=== PATIENT | female | born 1990 | race Caucasian/White ===

== ENCOUNTER 2020-05-09 10:03 | Outpatient (CLI) | payer BC | END 2020-05-09 10:04 | disposition home or self-care (01) | LOC: CTENTCT 10:03 | PROVIDERS: ATTEND Otolaryngology Plastic Surgery within the Head & Neck | DX: J32.9 Chronic sinusitis, unspecified (principal) | CPT/HCPCS: 70486 ==

== ENCOUNTER 2025-04-02 22:09 | Emergency (ER) | payer BC ==
[2025-04-02] MEDS ORDERED: Proparacaine 0.5% Opth 15 ML BOT ONE (23:32)
[2025-04-02] MEDS ORDERED: Fluorescein Opthalmic Strip ONE (23:32)
[2025-04-02] MEDS ORDERED: Gabapentin 100 MG CAP ONE (23:51)
== END 2025-04-02 23:57 | disposition home or self-care (01) ==
LOC: ERS 22:09
DX: B02.29 Other postherpetic nervous system involvement (principal)
CPT/HCPCS: 99283